=== PATIENT | male | born 1940 | race Caucasian/White ===

== ENCOUNTER → 2017-01-20 | Outpatient (CLI) | payer MEDICARE ==
[2014-09-25 11:00] VITALS: BP 133/74
[~2017-01-20] MED LIST: ATENOLOL100 MG PO; BYSTOLIC10 MG PO; COUMADIN2.5 MG PO; LASIX40 MG PO; LISINOPRIL/HCTZ1 TA1 PO
== END ==
LOC: LAB 09:17
DX: Z00.00 Encounter for general adult medical examination without abnormal findings (principal); I10 Essential (primary) hypertension; Z12.5 Encounter for screening for malignant neoplasm of prostate; E11.40 Type 2 diabetes mellitus with diabetic neuropathy, unspecified; E08.43 Diabetes mellitus due to underlying condition with diabetic autonomic (poly)neuropathy

== ENCOUNTER → 2022-07-24 | Outpatient (CLI) | payer MEDICARE | LOC: RAD 11:09 | DX: M47.814 Spondylosis without myelopathy or radiculopathy, thoracic region (principal); M48.04 Spinal stenosis, thoracic region; M25.78 Osteophyte, vertebrae; M41.84 Other forms of scoliosis, thoracic region ==

== ENCOUNTER 2023-09-06 10:00 | Emergency (ER) | payer MEDICARE ==
[~2023-09-06] VITALS: Ht 188 cm; Wt 113.5 kg
[~2023-09-06 10:00] MED LIST changes: +ALDACTONE25 M1 PO; +ATENOLOL25 MG PO; +ATENOLOL50 MG PO; +CEPHALEXIN500 M1 PO; +CLINDAMYCIN 300MG PO; +COLACE100 M1 PO; +DULCOLAX5 M1 PO; +FINASTERIDE5 M1 PO; +GARLIC OIL1000 M1 PO; +HYZAAR 100-12.1 EACH PO; +LOSARTAN POTASS1 TA2 PO; +MIRALAX17 GM PO; +ONE-DAILY MULT1 EAC1 PO; +PREDNISONE10 MG PO; +SYSTANE 0.3-0.1 EACH OP; +TORSEMIDE20 M1 PO; +TURMERIC CURCU500 MG PO; +VIBRAMYCIN HYC100 MG PO; +WARFARIN SOD2 MG PO; +WARFARIN SODIU2.5 MG PO; +WARFARIN SODIUM1 MG PO
[2023-09-06] MEDS ORDERED: FARXIGA10 MG PO (10:09)
[2023-09-06 10:44] LABS: BASO # 0.05 K/mm3 (0.02-0.10); EOS # 0.14 K/mm3 (0.04-0.40); EOS % 1.7 % (0.0-4.0); LYMPH# 0.78 K/mm3 (1.50-4.00); MEAN CELL VOLUME 91 fl (78-100); MEAN CORPUSCULAR HEMOGLOBIN 30 pg (27-31); MEAN CORPUSCULAR HGB CONC 33 g/dL (33-37); MEAN PLATELET VOLUME 8.8 fl (7.4-10.4); MONO # 0.65 K/mm3 (0.20-0.80); NEU # 6.79 K/mm3 (1.40-6.50); PLATELET COUNT 275 K/mm3 (130-400); RED CELL DISTRIBUTION WIDTH 14.4 % (11.5-14.5); WHITE BLOOD COUNT 8.4 K/mm3 (4.8-10.8)
[2023-09-06 10:55] LABS: ALBUMIN 3.5 g/dL (3.4-4.8)
[2023-09-06 10:56] LABS: CALCIUM 9.7 mg/dL (8.3-10.5)
[2023-09-06 10:58] LABS: TOTAL PROTEIN 6.7 g/dL (6.2-8.1)
[2023-09-06 10:59] LABS: TOTAL BILIRUBIN 0.7 mg/dL (0.2-1.2)
[2023-09-06] MEDS ORDERED: CLINDAMYCIN 300MG PO (15:11)
[2023-09-06 15:31] VITALS: BP 128/66
== END 2023-09-06 15:34 | disposition home or self-care (01) ==
LOC: ED 10:00
PROVIDERS: Nurse Practitioner Family
DX: L03.116 Cellulitis of left lower limb (principal); R73.9 Hyperglycemia, unspecified; Z88.0 Allergy status to penicillin; Z88.1 Allergy status to other antibiotic agents
CPT/HCPCS: J7120

== ENCOUNTER 2023-09-10 13:19 | Emergency (ER) | payer MEDICARE ==
[~2023-09-10] VITALS: Ht 188 cm; Wt 113.5 kg
[~2023-09-10 13:19] MED LIST changes: +FARXIGA10 MG PO
[2023-09-10 14:11] LABS: BASO # 0.04 K/mm3 (0.02-0.10); EOS # 0.16 K/mm3 (0.04-0.40); EOS % 1.8 % (0.0-4.0); HEMATOCRIT 39.2 % (42.0-52.0); LYMPH# 1.04 K/mm3 (1.50-4.00); MEAN CELL VOLUME 89 fl (78-100); MEAN CORPUSCULAR HEMOGLOBIN 30 pg (27-31); MEAN CORPUSCULAR HGB CONC 33 g/dL (33-37); MONO # 0.67 K/mm3 (0.20-0.80); NEU # 6.83 K/mm3 (1.40-6.50); PLATELET COUNT 290 K/mm3 (130-400); RED CELL DISTRIBUTION WIDTH 14.6 % (11.5-14.5); WHITE BLOOD COUNT 8.8 K/mm3 (4.8-10.8)
[2023-09-10 14:18] LABS: ALBUMIN 3.7 g/dL (3.4-4.8)
[2023-09-10 14:19] LABS: CALCIUM 9.6 mg/dL (8.3-10.5)
[2023-09-10 14:23] LABS: TOTAL BILIRUBIN 0.7 mg/dL (0.2-1.2)
[2023-09-10] MEDS ORDERED: CLEOCIN HCL300 MG PO (16:29)
[2023-09-10 16:43] VITALS: BP 139/65
== END 2023-09-10 16:43 | disposition home or self-care (01) ==
LOC: ED 13:19
PROVIDERS: Nurse Practitioner
DX: L03.116 Cellulitis of left lower limb (principal)